=== PATIENT | female | born 1950 | race Hispanic/Latino ===

== ENCOUNTER 2024-04-28 06:58 | Day surgery (SDC) | payer OTHER ==
[2024-04-24 14:09] LABS: BASOPHILS # (AUTO) 0.05 K/uL (0.00-0.20); EOSINOPHILS % (AUTO) 3.9 % (0.0-8.0); HEMATOCRIT 38.8 % (36-48); IMMATURE GRANULOCYTE ABSOLUTE 0.01 K/uL (0-1); LYMPHOCYTES # (AUTO) 2.2 K/uL (1.0-4.8); LYMPHOCYTES % (AUTO) 42.1 % (21.0-51.0); MEAN CORPUSCULAR HEMOGLOBIN 28.9 pg (27.0-33.0); MEAN CORPUSCULAR HGB CONC 32.7 g/dL (32.0-36.0); MEAN CORPUSCULAR VOLUME 88.4 fL (79-99); MONOCYTES # (AUTO) 0.4 K/uL (0.1-1.0); MONOCYTES % (AUTO) 7.2 % (3.0-13.0); NEUTROPHILS # (AUTO) 2.3 K/uL (1.8-7.7); NEUTROPHILS % (AUTO) 45.6 % (40.0-77.0); PLATELET COUNT (AUTO) 200 K/uL (130-400); RED BLOOD CELL COUNT(AUTO) 4.39 MIL/uL (4.00-5.50); RED CELL DISTRIBUTION WIDTH 14.1 % (11.0-15.5); WHITE BLOOD COUNT (AUTO) 5.1 K/uL (4.8-10.8)
[2024-04-24 14:10] VITALS: BP 153/66; PULSE 80; RESP 17
[2024-04-24 14:18] LABS: CREATININE 1.2 mg/dL (0.5-1.0); POTASSIUM 4.9 mmol/L (3.5-5.1)
[~2024-04-28] VITALS: Ht 160 cm; Wt 91.6 kg
[2024-04-28] VITALS (19 sets, daily range): BP systolic 131–174; BP diastolic 58–91; PULSE 65–79; RESP 15–18
[~2024-04-28 06:58] MED LIST: AMLO2.5T4 PO; ATOR10 PO; CALC-805 PO; LEVO5TAB13 PO; LISI40TA9 PO
[2024-04-28] MEDS ORDERED: SUCCINYLCHOLINE CHLORIDE 20 MG/ML 10 ML VIAL ONE (07:25)
[2024-04-28] MEDS ORDERED: LIDOCAINE PF 100MG/5ML (2%) SYRINGE 5ML ONE (07:25)
[2024-04-28] MEDS ORDERED: NEOSTIGMINE METHYLSULFATE 1MG/ML IV ONE (07:26)
[2024-04-28] MEDS ORDERED: GLYCOPYRROLATE 0.2 MG/ML 5 ML VIAL ONE (07:26)
[2024-04-28] MEDS ORDERED: PROPOFOL 10 MG/ML 20ML VIAL IV ONE (07:26)
[2024-04-28] MEDS ORDERED: DEXAMETHASONE SOD PHOSPHATE 10MG/ML 1ML VIAL ONE (07:26)
[2024-04-28] MEDS ORDERED: MIDAZOLAM HCL 1 MG/ML 2ML VIAL ONE (07:26)
[2024-04-28] MEDS ORDERED: FENTANYL CITRATE PF 50 MCG/1 ML 2ML VIAL ONE (07:27)
[2024-04-28] MEDS ORDERED: ONDANSETRON 4MG INJ ONE (07:27)
[2024-04-28] MEDS ORDERED: ROCURONIUM BROMIDE 10MG/1ML 5ML VL ONE (07:27)
[2024-04-28] MEDS: LACTATED RINGERS 1000ML 1,000 ML IV ONE (08:18)
[2024-04-28] MEDS: CEFAZOLIN SODIUM 2 GM VIAL ONE (08:18)
[2024-04-28] MEDS: CEFAZOLIN SODIUM 2 GM VIAL IVPB ONE (08:30)
[2024-04-28] MEDS ORDERED: BUPIVACAINE/PF 0.5% 30ML VIAL ONE (08:49)
[2024-04-28] MEDS: HYDRALAZINE 20MG/ML VIAL ONE (09:42)
[2024-04-28] MEDS: MEPERIDINE-PF 25 MG/ML SYG ONE (09:47)
== END 2024-04-28 11:00 | disposition home or self-care (01) ==
LOC: DAH 06:58
PROVIDERS: ATTEND Surgery
DX: L72.3 Sebaceous cyst (principal); L72.0 Epidermal cyst; Z79.899 Other long term (current) drug therapy; Z79.01 Long term (current) use of anticoagulants
CPT/HCPCS: 93005; 80048; 85025; 36415; 11406; 88304; A6260; J0665 ×2; A4663; J7030; A4452; J7120; J3010; J1100; J0330; J3490 ×2; J2001; J0360; J2250; J2704; J2405; J2710; J2175; J0690 ×2; A4930; A4215 ×2; A4223; A4222; A4221; A4600